=== PATIENT | male | born 1995 | race Caucasian/White ===

== ENCOUNTER 2024-04-23 10:02 | Emergency (ER) | payer SELFPAY ==
[~2024-04-23] VITALS: Ht 160 cm; Wt 73.0 kg
[2024-04-23 10:04] VITALS: BP 151/80; RESP 16; TEMP 37.8; O2SAT 98
[2024-04-23 10:05] VITALS: PULSE 75; O2SAT 100
[2024-04-23 12:39] VITALS: TEMP 100
[2024-04-23] MEDS: ACETAMINOPHEN 325MG TABLET PO STA (12:39)
[2024-04-23 13:29] LABS: CLARITY URINE CLEAR (CLEAR); COLOR URINE YELLOW (YELLOW); GLUCOSE URINE NEGATIVE (NEGATIVE); KETONES URINE NEGATIVE (NEGATIVE); LEUKOCYTE ESTERASE URINE NEGATIVE (NEGATIVE); NITRITE URINE NEGATIVE (NEGATIVE); OCCULT BLOOD URINE TRACE (NEGATIVE); PROTEIN URINE NEGATIVE (NEGATIVE); UROBILINOGEN URINE 0.2 E.U./dL (0.2-1.0)
[2024-04-23 13:51] LABS: BASOPHILS % 0.4 % (0.0-2.0); EOSINOPHILS % 0.5 % (0.0-5.0); HEMATOCRIT. 42.2 % (42.0-52.0); HEMOGLOBIN. 14.2 g/dL (14.0-18.0); LYMPHOCYTES % 16.8 % (20.0-50.0); MEAN CORPUSCULAR HEMOGLOBIN 30.2 pg (28.0-32.0); MEAN CORPUSCULAR HGB CONC 33.6 g/dL (31.0-37.0); MEAN PLATELET VOLUME 7.7 fl (7.4-10.4); MONOCYTES % 8.5 % (2.0-8.0); NEUTROPHILS % 73.8 % (40.0-76.0); PLATELET 332 x1000/uL (130-400); RED BLOOD CELL COUNT 4.69 mill/uL (4.7-6.1); RED CELL DISTRIBUTION WIDTH 13.5 % (11.6-14.6); WHITE BLOOD COUNT 11.9 x1000/uL (4.5-11.0)
[2024-04-23 13:58] LABS: CHLORIDE 106 mEq/L (98-107); POTASSIUM 3.9 mEq/L (3.5-5.1); SODIUM 137 mEq/L (136-145)
[2024-04-23 13:59] LABS: CARBON DIOXIDE 25 mEq/L (21-32)
[2024-04-23 14:00] LABS: CALCIUM 8.9 mg/dL (8.7-10.4)
[2024-04-23 14:04] LABS: CREATININE 0.7 mg/dL (0.6-1.3); GLUCOSE 114 mg/dL (70-105); UREA NITROGEN BLOOD 9 mg/dL (9-23)
[2024-04-23 14:08] LABS: BACTERIA URINE RARE; RBC URINE 0-2 /hpf (0-2); SQUAMOUS EPITHELIAL CELL URINE NONE SEEN /lpf (RARE/1+); WBC URINE NONE SEEN /hpf (0-2); YEAST URINE NONE SEEN
[2024-04-23] MEDS ORDERED: ACET-2708 PO (14:53)
[2024-04-23] MEDS ORDERED: NAPR-681 MT (14:55)
== END 2024-04-23 15:10 | disposition home or self-care (01) ==
LOC: ER 10:02
DX: B34.9 Viral infection, unspecified (principal); I10 Essential (primary) hypertension; Z20.822 Contact with and (suspected) exposure to COVID-19
CPT/HCPCS: 36415; 80048; 81003; 85025; 87426; 87804; 99283